=== PATIENT | male | born 1990 | race Hispanic/Latino ===

== ENCOUNTER 2023-10-28 19:24 | Emergency (ER) | payer OTHER, SELFPAY ==
[2023-10-28 19:26] VITALS: BP 131/85
--- NOTE | 2023-10-28 19:43 | ED.GENMED ---
History of Present Illness
General
Chief Complaint: Fall
Time Seen by Provider: 10/28/23 19:33
History of Present Illness
History of Present Illness:
HPI: Patient presents from [facility] after a fall striking his mouth on the toilet. He presents with a laceration to the upper lip. He states he is not sure how he fell and thinks he may have passed out.
EXAM:
GENERAL: Well appearing in no distress
HEENT: There is a 1.5 cm very irregular jagged laceration to the left side of the lower lip
CARDIOVASCULAR: No murmurs, normal heart rate, regular rhythm, No chest wall tenderness
PULMONARY: No respiratory distress, breath sounds are clear and equal
ABDOMEN: Soft with no peritoneal signs, no tenderness
NEUROLOGIC: Excellent strength all extremities, no coordination deficits
PSYCHIATRIC: Appropriate mental status, normal insight and judgement
EXTREMITIES: Nontender, no edema, moves all extremities equally
SKIN: No rash, no lesions
TIME OF INITIAL ENCOUNTER: 8 PM
NUMBER AND COMPLEXITY OF PROBLEMS ADDRESSED AT THE ENCOUNTER
� Chronic conditions affecting care: Denies past medical history, denies diabetes
� Acute Exacerbation and/or Progression of Chronic Illness: This is an acute problem
� Differential Diagnosis includes: Lip laceration, hypoglycemia
AMOUNT AND/OR COMPLEXITY OF DATA TO BE REVIEWED AND ANALYZED
� I performed an independent evaluation of and my interpretation is:
EKG:
CT:
X-rays:
Laboratory Studies: Blood sugar 99
Other:
� Review of other/old records: No old records available for review
� Clinical information was obtained by an independent historian: I spoke to [facility] officers at bedside
� Prescriptions/Medications Considered but not given:
� Further testing considered but not performed:
RISK OF COMPLICATIONS AND/OR MORBIDITY OR MORTALITY OF PATIENT MANAGEMENT
� Social determinants of health affecting care: Currently resides at [facility]
� Discussion with other providers:
� Escalation of care including admission/observation vs risk of discharge considered: The wound was cleaned/irrigated and closed with Vicryl Rapide
Phy Exam
Physical Exam
Physical Exam:
See HPI
Course
Orders/Labs/Results
Orders:
Orders
10/28/23 20:07
Bedside Glucose- Treatment ONCE
Vital Signs
Initial and Last Documented VS:
Initial Vital Signs
Temp Pulse Resp BP Pulse Ox
98.6 F 96 18 131/85 98
10/28/23 19:26 10/28/23 19:26 10/28/23 19:26 10/28/23 19:26 10/28/23 19:26
Last Documented Vital Signs
Temp Pulse Resp BP Pulse Ox
98.6 F 96 18 131/85 98
10/28/23 19:26 10/28/23 19:26 10/28/23 19:26 10/28/23 19:26 10/28/23 19:26
Procedures
Laceration Closure
Left Lower Lateral Lip:
Status of Wound: clean
Description of Wound Edges: ragged
Preparation: cleaned with saline
Anesthesia: 1% Lidocaine
Revision/Debridement: routine- no revision
Wound exploration: explored to base- no FB
Type of Closure: single layer closure
Number of sutures: 5
Additional information:
5-0 Vicryl Rapide used
*Critical Care Note
Total Time (30-74mins, 75-104mins- exclusive of procedures): Not Applicable
ED Attending Note
-
Portions of this chart may have been created with voice recognition software.� Occasional wrong word or��sound alike� substitutions may have occurred due to the inherent limitations of voice recognition software.
Discharge Plan
Departure
Patient Disposition: [facility]
Date of Disposition: 10/28/23
Time of Disposition: 20:12
Discharge Problem:
Laceration of lip
Instructions: Laceration Repair With Stitches (DC), BLOOD PRESSURE
Referrals:
[facility] [Family Provider] -
Activity Restrictions/Additional Instructions:
I used absorbable stitches called Vicryl Rapide to close the wound. These will dissolve on their own over the next week or so. Return here if worse or any other concerns.
Interventions
Interventions:
*Risk Screen - Suicide Last Done: 10/28/23 20:30
*General Assessment Last Done: 10/28/23 20:30
*Neglect/Abuse Screening Last Done: 10/28/23 20:30
ED- Fall Risk Assessment Last Done: 10/28/23 20:30
*ED COVID-19 Vaccine History Last Done: 10/28/23 21:25
*Nursing Disposition Last Done: 10/28/23 21:25
ED-Musculoskeletal Assessment Last Done: 10/28/23 20:30
ED- Neurological Assessment Last Done: 10/28/23 20:30
ED-Skin Assessment Last Done: 10/28/23 20:30
Discharge Date and Time
Print Language: ALBANIAN
[2023-10-28 20:33] LABS: Glucose - Point of Care 99 mg/dl (70-99)
== END 2023-10-28 21:26 ==
LOC: EMR 19:24
PROVIDERS: EMERGENCY PHYSICIAN Emergency Medicine
DX: S01.511A Laceration without foreign body of lip, initial encounter (principal); W18.30XA Fall on same level, unspecified, initial encounter
CPT/HCPCS: 99282; 12011; 82962